=== PATIENT | female | born 1970 | race Caucasian/White ===

== ENCOUNTER 2018-03-26 15:51 | Emergency (ER) | payer SELFPAY ==
[~2018-03-26] VITALS: Ht 165.1 cm; Wt 135.4 kg
[2018-03-26] MEDS ORDERED: KETOROLAC 60 MG/2 ML IM ONE (17:00)
[2018-03-26] MEDS ORDERED: KETOROLAC 30 MG/1 ML ONE (17:02)
[2018-03-26 17:55] VITALS: BP 132/78
== END 2018-03-26 17:57 | disposition home or self-care (01) ==
LOC: ED 17:25
DX: G90.09 Other idiopathic peripheral autonomic neuropathy (principal); E11.9 Type 2 diabetes mellitus without complications
CPT/HCPCS: 29125; 73110; 73130; 82962; 96372; 99284; J1885